=== PATIENT | female | born 1965 | race Caucasian/White ===

== ENCOUNTER 2017-11-28 13:31 | Inpatient (IN) | payer OTHER ==
[~2017-11-28] VITALS: Ht 152.4 cm; Wt 38.6 kg
[2017-11-28] MEDS ORDERED: ONDANSETRON 4 MG/2 ML VIAL IV ONE ×2 (14:15→15:15)
[2017-11-28] MEDS ORDERED: IV NORMAL SALINE 1000 ML BAG IV ONE (14:15)
[2017-11-28] MEDS ORDERED: PANTOPRAZOLE SODIUM 40 MG VIAL IV ONE (14:15)
[2017-11-28] MEDS ORDERED: ONDANSETRON 4 MG/2 ML VIAL ONE ×2 (14:16→15:19)
[2017-11-28] MEDS ORDERED: PANTOPRAZOLE SODIUM 40 MG VIAL ONE (14:16)
[2017-11-28 14:30] LABS: CREATININE 0.6 mg/dL (0.6-1.3); POTASSIUM 3.6 mmol/L (3.5-5.1)
[2017-11-28 14:31] LABS: BASOPHILS % (AUTO) 0.7 % (0.0-2.0); EOSINOPHILS % (AUTO) 0.6 % (0.0-7.0); HEMATOCRIT 36.8 % (31.2-41.9); HEMOGLOBIN 12.4 g/dL (10.9-14.3); LYMPHOCYTES # (AUTO) 1.4 K/uL (20.0-40.0); LYMPHOCYTES % (AUTO) 31.9 % (20.5-51.5); MEAN CORPUSCULAR HEMOGLOBIN 31.5 uug (24.7-32.8); MEAN CORPUSCULAR HGB CONC 34 g/dL (32.3-35.6); MEAN CORPUSCULAR VOLUME 93.6 fL (75.5-95.3); MONOCYTES # (AUTO) 0.4 K/uL (2.0-10.0); MONOCYTES % (AUTO) 8.5 % (0.0-11.0); NEUTROPHILS # (AUTO) 2.5 K/uL (1.8-8.9); NEUTROPHILS % (AUTO) 58.3 % (38.5-71.5); PLATELET COUNT (AUTO) 191 K/uL (179-408); RED BLOOD CELL COUNT(AUTO) 3.94 MIL/uL (3.63-4.92); WHITE BLOOD COUNT (AUTO) 4.3 K/uL (3.8-11.8)
[2017-11-28 14:37] LABS: BILIRUBIN,DIRECT 0.2 mg/dL (0.0-0.2); TOTAL PROTEIN, SERUM 7.7 g/dL (6.4-8.2)
[2017-11-28] MEDS ORDERED: IOHEXOL 350 100 ML INFUS..BTL ONE (16:26)
[2017-11-28] MEDS ORDERED: NORMAL SALINE FLUSH 10 ML DISP.SYRIN ONE (16:26)
[2017-11-28] MEDS ORDERED: IV NORMAL SALINE 100 ML ONE (16:26)
--- NOTE | 2017-11-28 18:14 | NUR ---
g-tube flushing easily, no sign of infection at the stoma.
--- NOTE | 2017-11-28 19:35 | NUR ---
PT RECEIVED FROM ED, VIA [employer]. A/OX1. NON-VERBAL. ORIENTED TO ROOM. V/S STABLE. SINUS RHYTHM 73 ON THE TELE MONITOR. IN NO ACUTE DISTRESS. NO S/S OF PAIN NOTED AT THIS TIME. IV INTACT AND PATENT, ON RFA AND RAC. ON RA, TOLERATING WELL. GTUBE INTACT AND PATENT, NO RESIDUAL NOTED. PT KEPT NPO. HOB ELEVATED. SAFETY MEASURES IMPLEMENTED. BED ALARM SET. CALL LIGHT WITHIN REACH.
[2017-11-28] MEDS ORDERED: MORPHINE SULFATE 2 MG/1 ML DISP.SYRIN IV PRN (19:45)
[2017-11-28] MEDS ORDERED: Z GUARD REMEDY PASTE 57 GM TUBE TOP PRN (19:45)
[2017-11-28] MEDS ORDERED: HYDROCODONE/APAP 5-325MG TABLET PO PRN (19:45)
[2017-11-28] MEDS ORDERED: ZOLPIDEM 5 MG TABLET PO PRN (19:45)
[2017-11-28] MEDS ORDERED: MAGNESIUM HYDROXIDE 30 ML LIQUID UDC PO PRN (19:45)
[2017-11-28] MEDS ORDERED: ONDANSETRON 4 MG/2 ML VIAL IV PRN (19:45)
[2017-11-28] MEDS ORDERED: ACETAMINOPHEN 325 MG TABLET PO PRN (19:45)
[2017-11-28 20:20] VITALS: BP 92/71
[2017-11-28] MEDS: IV NS 1000 ML 1,000 ML IV PRN (21:54)
[2017-11-29] VITALS: BP 91/58
[2017-11-29 04:00] VITALS: BP 92/62
[2017-11-29] MEDS: IV NS 1000 ML 1,000 ML IV PRN ×2 (05:20→18:42)
--- NOTE | 2017-11-29 05:30 | NUR ---
END OF SHIFT NOTES. PT SLEPT INTERMITTENTLY THROUGHOUT SHIFT. IN STABLE CONDITION. 56 SINUS ON THE TELE MONITOR. TOLERATED RA, WELL. AFEBRILE. GTUBE REMAINS INTACT AND PATENT, NO RESIDUAL NOTED. NPO MAINTAINED. HOB ELEVATED. ALL NEEDS ATTENDED. SAFETY MAINTAINED. CALL LIGHT WITHIN REACH.
[2017-11-29 06:48] LABS: BASOPHILS % (AUTO) 0.7 % (0.0-2.0); EOSINOPHILS # (AUTO) 0.1 K/uL (0.0-0.7); HEMOGLOBIN 11.5 g/dL (10.9-14.3); LYMPHOCYTES # (AUTO) 2.4 K/uL (20.0-40.0); LYMPHOCYTES % (AUTO) 45.8 % (20.5-51.5); MEAN CORPUSCULAR HEMOGLOBIN 31.8 uug (24.7-32.8); MEAN CORPUSCULAR HGB CONC 34 g/dL (32.3-35.6); MEAN CORPUSCULAR VOLUME 94.4 fL (75.5-95.3); MONOCYTES # (AUTO) 0.3 K/uL (2.0-10.0); MONOCYTES % (AUTO) 5.7 % (0.0-11.0); NEUTROPHILS # (AUTO) 2.4 K/uL (1.8-8.9); NEUTROPHILS % (AUTO) 46.8 % (38.5-71.5); PLATELET COUNT (AUTO) 159 K/uL (179-408); RED BLOOD CELL COUNT(AUTO) 3.61 MIL/uL (3.63-4.92); WHITE BLOOD COUNT (AUTO) 5.2 K/uL (3.8-11.8)
[2017-11-29 07:01] LABS: CREATININE 0.6 mg/dL (0.6-1.3); MAGNESIUM 2.1 mg/dL (1.8-2.4); PHOSPHOROUS 3.4 mg/dL (2.5-4.9); TOTAL PROTEIN, SERUM 6.5 g/dL (6.4-8.2)
[2017-11-29 11:27] VITALS: BP 99/52
[2017-11-29 15:28] VITALS: BP 92/51
[2017-11-29] MEDS: NUTREN 1.5 1000ML BAG GT PRN (18:42)
[2017-11-29 19:55] LABS: *BILIRUBIN,URIN NEGATIVE (NEGATIVE); *BLOOD, URINE NEGATIVE (NEGATIVE); *CLARITY,URINE CLEAR (CLEAR); *COLOR,URINE YELLOW (YELLOW); *KETONES,URINE 1+ (NEGATIVE); *PROTEIN,URINE NEGATIVE (NEGATIVE); *UROBILINOGEN,URINE 0.2 E.U./dl (NORMAL); LEUKOCYTE ESTERASE ,URINE NEGATIVE (NEGATIVE); NITRITE, URINE NEGATIVE (NEGATIVE); PH,URINE 5.5 (5.0-8.0); UGLUCOSE NEGATIVE (NEGATIVE); WBC,URINE 0-3 /HPF (0-3)
[2017-11-29 19:56] LABS: SQUAMOUS EPITHELIAL CELL,UR FEW /HPF (NONE SEEN)
--- NOTE | 2017-11-29 20:00 | NUR ---
RECEIVED PATIENT AWAKE IN BED, SHE'S NON VERBAL AND UNABLE TO EXPRESS HER NEEDS BUT ABLE TO NOD WITH HER HEAD. PATIENT WITH NO S/S OF OF PAIN OR DISTRESS ON ASSESSMENT. SHE HAS A G-TUBE WHICH IS PATENT AND INTACT WITH NO RESIDUAL. G-TUBE SITE IS CLEAN WITH NO S/S OF INFECTION. SAFETY AND COMFORT MEASURES IN PLACE, CALL LIGHT LEFT WITHIN PATIENT'S REACH.
[2017-11-29 20:20] VITALS: BP 92/53
[2017-11-29 20:30] VITALS: BP 99/54
[2017-11-30 04:00] VITALS: BP 96/53
[2017-11-30] MEDS: IV NS 1000 ML 1,000 ML IV PRN ×2 (06:06→23:27)
--- NOTE | 2017-11-30 06:37 | NUR ---
PATIENT SLEPT WELL THROUGH THE SHIFT. NO EVIDENCE OF PAIN OR DISTRESS NOTED ON THIS SHIFT. DRESSING TO G-TUBE SITE CHANGED. SAFETY AND COMFORT MEASURES IN PLACE. ASPIRATION PRECAUTIONS MAINTAINED AT ALL TIMES.NO SIGNIFICANT CHANGES IN STATUS, PATIENT RESTING COMFORTABLY, ALL NEEDS MET.
[2017-11-30 11:49] VITALS: BP 100/54
[2017-11-30 15:13] VITALS: BP 101/47
--- NOTE | 2017-11-30 17:00 | NUR ---
AWAKE NON VERBAL NO SOB OR PAIN GT FEEDING WITH 1.5 NUTREN AT 40 ML/HR LEANDRO WELL NO N/V HOB UP AT ALL TIME ON ASPIRATION AND FALL PRECAUTION BED ALARM ON AND CALL LIGHT IN REACH
--- NOTE | 2017-11-30 17:30 | NUR ---
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
--- NOTE | 2017-11-30 18:00 | NUR ---
HEMODYNAMIC STATUS STABLE SAFETY MEASURE PROVIDED BED ALARM UNDER CUTTER LIGHT IN REACH NO ACUTE DISTRESS
--- NOTE | 2017-11-30 18:30 | NUR ---
START NEW IV LINE ON RT WRIST #22 AND CONTINUE IVF AT 150ML /HR ORDER LEANDRO WELL
[2017-11-30 20:00] VITALS: BP 111/65
--- NOTE | 2017-11-30 20:00 | NUR ---
RECEIVED PATIENT AWAKE IN BED. PATIENT IS ALERT TO SELF. APHASIC AND UNABLE TO SPEAK BUT PATIENT IS ABLE TO MAKE SIMPLE NEEDS KNOWN, FOR EXAMPLE, IF PATIENTS DIAPER IS WET, SHE WILL POINT TO THE DIAPER AND WHEN ASKED IF SHE NEEDS TO BE CHANGED, SHE WILL NOD HER HEAD YES. IVF INFUSING WELL TO RIGHT WRIST #22 GAUGE. GT FEEDING INFUSING WELL. ON ASPIRATION PRECAUTIONS. NO S/S OF ANY PAIN OR DISCOMFORT. NO FACIAL GRIMACE NOTED AND WHEN ASKED IF PAIN, PATIENT SHAKES HER HEAD NO. NO RESP. DISTRESS NOTED. BED ALARM ON. CALL LIGHT IN REACH. ALL NEEDS ATTENDED, WILL CONTINUE TO MONITOR.
--- NOTE | 2017-12-01 02:00 | NUR ---
PATIENT AWAKE IN BED. APPEARS RESTLESS AND UNABLE TO SLEEP. PATIENT GIVEN AMBIEN 5MG AND TYLENOL 650MG PRN VIA GT FOR SLEEP AND MILD DISCOMFORT. BED ALARM ON, ALL NEEDS ATTENDED. WILL CONTINUE TO MONITOR.
--- NOTE | 2017-12-01 02:34 | NUR ---
PATIENT ASLEEP. NO RESP. DISTRESS NOTED. RESTING WELL. BED ALARM ON. ALL NEEDS ATTENDED. WILL CONTINUE TO MONITOR AND ASSESS.
[2017-12-01 05:18] VITALS: BP 90/49
[2017-12-01] MEDS: IV NS 1000 ML 1,000 ML IV PRN (05:41)
[2017-12-01] MEDS: NUTREN 1.5 1000ML BAG GT PRN (05:51)
--- NOTE | 2017-12-01 06:29 | NUR ---
PATIENT AWAKE IN BED. SLEPT FOR A FEW HOURS AFTER AMBIEN WAS ADMINISTERED. PATIENT IS AWAKE IN BED. IVF INFUSING WELL TO RIGHT WRIST. GT FEEDING INFUSING WELL. NO RESIDUAL NOTED. NO S/S OF PAIN OR DISCOMFORT. NO RESP. DISTRESS NOTED. BED ALARM ON. CALL LIGHT IN REACH. ALL NEEDS ATTENDED. WILL CONTINUE TO MONITOR AND ASSESS.
--- NOTE | 2017-12-01 07:30 | NUR ---
PATIENT AWAKE IN BED. . BED ALARM ON, ALL NEEDS ATTENDED. WILL CONTINUE TO MONITOR.
[2017-12-01 11:00] VITALS: BP 98/61
--- NOTE | 2017-12-01 15:17 | NUR ---
D/C ORDERS RECEIVED NOTED AND CARRIED OUT,D/C INSTRUCTION AND EDUCATION GIVEN TO THE PT FINANCIAL SERVICES AGENT FROM [facility],D/C BEN PER MD ORDERS,PT LEFT THE FACILITY VIA PRIVATE CAR IN STABLE CONDITION,
== END 2017-12-01 15:15 | DRG 282 ==
LOC: ER 13:31 → TELE 19:18 → MED 11-29 09:25
PROVIDERS: ADMIT Internal Medicine; ATTEND Internal Medicine
DX: K85.90 Acute pancreatitis without necrosis or infection, unspecified (principal); G93.40 Encephalopathy, unspecified; R13.10 Dysphagia, unspecified; Z93.1 Gastrostomy status; S06.9X0S Unspecified intracranial injury without loss of consciousness, sequela; V09.9XXS Pedestrian injured in unspecified transport accident, sequela
CPT/HCPCS: 36415; 71045; 83690; 83735; 84100; 84703; 85025; 92523; 93005; 97165; 97530; A4663; C9113; J2405; J3490; J7030; J7050; Q9967